=== PATIENT | male | born 1985 | race African-American/Black ===

== ENCOUNTER 2017-01-30 09:41 | Emergency (ER) | payer OTHER ==
[~2017-01-30] VITALS: Wt 70.0 kg
[2017-01-30] MEDS ORDERED: morphine 4 MG/ML VIAL IV STA (10:03)
[2017-01-30] MEDS ORDERED: ONDANSETRON 4 MG INJ IV STA (10:03)
--- NOTE | 2017-01-30 10:25 | ERD ---
ER Documentation Chief Complaint Date/Time DATE: 01/30/17 TIME: 10:21 Chief Complaint LLQ ABD PAIN, VOMITING YESTERDAY HPI Patient is a 31-year-old male with no past medical history who presents to the ED with left-sided abdominal pain 1 week and left testicular pain 1 day he states that he had one episode of nonbloody nonbilious emesis yesterday. Last bowel movement was 3 days ago. Denies chest pain or cough or shortness of breath. Denies headache or dizziness. Has not taken any medication for his symptoms. ROS All systems reviewed and are negative except as per history of present illness. Medications Home Meds Active Scripts Ciprofloxacin Hcl* (Ciprofloxacin Hcl*) 500 Mg Tablet, 500 MG PO BID for 10 Days , TAB Prov:OLINDA WILKERSON PA-C 01/30/17 Acetaminophen* (Tylophen*) 500 Mg Capsule, 1 CAP PO Q6H Y for PAIN AND OR ELEVATED TEMP, #20 CAP Prov:OLINDA WILKERSON PA-C 01/30/17 Ondansetron (Ondansetron Odt) 4 Mg Tab.rapdis, 4 MG PO Q6H Y for NAUSEA AND/OR VOMITING, #10 TAB Prov:OLINDA WILKERSON PA-C 01/30/17 Allergies Allergies: Coded Allergies: No Known Allergy (Unverified , 01/30/17) PMhx/Soc Medical and Surgical Hx: pt denies Surgical Hx History of Surgery: No Anesthesia Reaction: No Hx Neurological Disorder: No Hx Respiratory Disorders: No Hx Cardiac Disorders: No Hx Psychiatric Problems: No Hx Miscellaneous Medical Probl: No (groin pain) Hx Alcohol Use: No Hx Substance Use: Yes Hx Tobacco Use: Yes Smoking Status: Current every day smoker Physical Exam Vitals Vital Signs Date Time Temp Pulse Resp B/P Pulse Ox O2 Delivery O2 Flow Rate FiO2 01/30/17 09:44 97.0 91 17 126/63 100 Physical Exam GENERAL: Well-developed, well-nourished male. Appears in no acute distress. HEAD: Normocephalic, atraumatic. EYES: Pupils are equally reactive bilaterally. EOMs grossly intact. No conjunctival erythema. ENT: Moist mucous membranes. No uvula deviation. No kissing tonsils. No exudates. NECK: Supple. No lymphadenopathy or thyromegaly. No meningismus. negative kernig. negative brudinski. LUNG: Clear to auscultation bilaterally. No rhonchi, wheezing, rales or coarse breath sounds. HEART: Regular rate and rhythm. No murmurs, rubs or gallops. ABDOMEN: No scars, ecchymosis or rashes noted. Soft, left-sided abdominal tenderness. Positive bowel sounds in all four quadrants. No rebound tenderness, no guarding. (-) McBurneys point tenderness. No CVA tenderness. : Left testicle is swollen and erythematous and tender. BACK: No midline tenderness. Extremities: Equal pulses bilaterally. No peripheral clubbing, cyanosis or edema. No unilateral leg swelling. NEUROLOGIC: Alert and oriented. Moving all four extremities. 5/5 strength in all extremities. Normal speech. Steady gait. SKIN: Normal color. Warm and dry. No rashes or lesions. Capillary refill < 2 seconds Result Diagram: 01/30/17 1015 01/30/17 1015 Results 24 hrs Laboratory Tests Test 01/30/17 10:15 01/30/17 12:05 White Blood Count 13.110^3/ul Red Blood Count 4.1710^6/ul Hemoglobin 13.6g/dl Hematocrit 40.8% Mean Corpuscular Volume 97.8fl Mean Corpuscular Hemoglobin 32.6pg Mean Corpuscular Hemoglobin Concent 33.3g/dl Red Cell Distribution Width 13.2% Platelet Count 54314^3/UL Mean Platelet Volume 9.5fl Neutrophils % 77.3% Lymphocytes % 12.6% Monocytes % 9.0% Eosinophils % 0.5% Basophils % 0.2% Nucleated Red Blood Cells % 0.0/100WBC Neutrophils # 10.110^3/ul Lymphocytes # 1.710^3/ul Monocytes # 1.210^3/ul Eosinophils # 0.110^3/ul Basophils # 0.010^3/ul Nucleated Red Blood Cells # 0.010^3/ul Sodium Level 142mmol/L Potassium Level 5.0mmol/L Chloride Level 106mmol/L Carbon Dioxide Level 31mmol/L Anion Gap 10 Blood Urea Nitrogen 9mg/dl Creatinine 0.91mg/dl Glucose Level 131mg/dl Calcium Level 9.4mg/dl Total Bilirubin 0.8mg/dl Direct Bilirubin 0.00mg/dl Indirect Bilirubin 0.8mg/dl Aspartate Amino Transf (AST/SGOT) 27IU/L Alanine Aminotransferase (ALT/SGPT) 31IU/L Alkaline Phosphatase 66IU/L Total Protein 7.7g/dl Albumin 4.5g/dl Globulin 3.20g/dl Albumin/Globulin Ratio 1.40 Lipase 22U/L Urine Color LT. YELLOW Urine Clarity CLOUDY Urine pH 6.5 Urine Specific [place] 1.025 Urine Ketones NEGATIVE Urine Nitrite POSITIVE Urine Bilirubin NEGATIVE Urine Urobilinogen 1.0 E.U./dL Urine Leukocyte Esterase 2+ Urine Microscopic RBC 0-2/HPF Urine Microscopic WBC >200/HPF Urine Bacteria MANY Urine Hemoglobin TRACE Urine Glucose NEGATIVE% Urine Total Protein 1+ Current Medications Medications (Trade) Dose Ordered Sig/Hillary Route PRN Reason Start Time Stop Time Status Last Admin Dose Admin Morphine Sulfate (morphine) 4 mg ONCE STAT IV 01/30/17 10:03 01/30/17 10:05 DC 01/30/17 10:24 Ondansetron HCl (Zofran Inj) 4 mg ONCE STAT IV 01/30/17 10:03 01/30/17 10:05 DC 01/30/17 10:24 Ceftriaxone Sodium (Rocephin) 250 mg ONCE ONCE IM 01/30/17 12:00 01/30/17 12:05 DC 01/30/17 12:03 Azithromycin (Zithromax) 1,000 mg ONCE ONCE PO 01/30/17 13:00 01/30/17 13:01 01/30/17 12:50 Procedures/MDM ER COURSE: I kept the patient and/or family informed of laboratory and diagnostic imaging results throughout the emergency room course. EKG, MONITORS, & DIAGNOSTIC IMAGING: [place] [address] Radiology Main Line: [phone] DIAGNOSTIC IMAGING REPORT Patient: SHILA CHANDLER : 1985 Age: 31 Sex: M MR #: [id number] DOS: 01/30/17 1003 Ordering MD: OLINDA WILKERSON PA-C Location: [facility] Room/Bed: PROCEDURE: CT Abdomen and pelvis without contrast. CLINICAL INDICATION: Abdominal Pain TECHNIQUE: CT scan of the abdomen and pelvis without contrast was performed on a multidetector high-resolution CT scan. . Coronal and sagittal reformatted images were obtained from the axial source images. Standard CT scan of the abdomen pelvis without contrast protocols were performed. The total exam CTDI equals 8.29 mGy and the total exam DLP equals 480.93 mGy- cm. One or more of the following dose reduction techniques were used: - Automated exposure control. - Adjustment of the mA and/or kV according to patient size. Use of iterative reconstruction technique. COMPARISON: None. FINDINGS: There are numerous focal areas of increased density within the gastric lumen consistent with ingested pills. The stomach is otherwise unremarkable. The small bowel, large bowel and appendix are unremarkable. Negative for intra- abdominal free fluid, free air or abscesses. Note that there is a paucity of retroperitoneal fat. There is retroperitoneal lymphadenopathy in the periaortic and inner aortocaval region at the level of the posterior pancreas and kidneys which is difficult optimally measure however the largest lymph node posterior to the pancreatic body is approximately 1.4 cm. Lymphadenopathy may be inflammatory in nature however neoplasm such as lymphoma should be considered. The kidneys are normal in size without renal calcified calculi hydronephrosis or intra renal masses bilaterally. The urinary bladder is unremarkable. The prostate gland is unremarkable. The liver spleen adrenal glands and gallbladder are unremarkable. No definite pancreatic lesion is seen however without intravenous contrast administration it is difficult to optimally evaluate for pancreatic lesions. There is diffuse pancreatic duct dilation with a maximal diameter of 7 mm at the level of the pancreatic head. The common bile duct is prominent for the patient's age with a maximal diameter of approximately 5 mm. No evidence of intrahepatic biliary ductal dilation. There is no definite pancreatic duct or biliary ductal calculi. Recommend high-resolution MRI of the pancreas with contrast for pancreatic mass protocols for further evaluation. The lung bases are clear. No evidence of aortic aneurysm. The osseous structures are unremarkable. IMPRESSION: 1. Paucity of retroperitoneal fat in addition with lack of intravenous contrast administration precludes optimal evaluation of the retroperitoneum and pancreas. 2. There is dilation of the common bile duct and pancreatic duct as described above without a definite pancreatic mass or calculi demonstrated. Recommend follow-up high-resolution MRI of the pancreas with contrast for pancreatic mass protocols for further evaluation. 3. Retroperitoneal lymphadenopathy as described above may be inflammatory or neoplastic etiology such as lymphoma should be considered. 4. No evidence of calcified renal calculi or obstructive uropathy. 5. Negative for intra-abdominal free air or fluid. Addendum: ABIOLA Wilkerson was telephoned this results on 01/30/2017 at 1130 hours. RPTAT:AAJJ Physician Jolene Date Time Electronically viewed and signed by Judah Biswas Physician on 01/30/2017 11:45 BM/ CC: OLINDA WILKERSON PA-C [place] [address] Radiology Main Line: [phone] DIAGNOSTIC IMAGING REPORT Patient: SHILA CHANDLER : 1985 Age: 31 Sex: M MR #: [id number] DOS: 01/30/17 1003 Ordering MD: OLINDA WILKERSON PA-C Location: [facility] Room/Bed: PROCEDURE: Scrotal ultrasound CLINICAL INDICATION: Scrotal pain. TECHNIQUE: Scrotal ultrasound was performed with sagittal and transverse views. Chowdhury scale and color imaging was performed. Images were reviewed on high resolution PACS monitors. COMPARISON: 02/10/2014. FINDINGS: The right testicle measures 3.4 x 2.2 x 2.7 cm. The left testicle measures 3.2 x 2.4 x 2.8 cm. There is normal size and echogenicity and morphology bilaterally. There is normal blood flow to both testes. There is slightly hyperemic flow to the left epididymis.. Left epididymis appears hyperemic. No focal mass or fluid collection is seen. There are bilateral hydroceles, left greater than right. There is a right-sided varicocele noted which increases with Valsalva maneuver. The soft tissues are unremarkable. No mass or cyst or other abnormality is seen. IMPRESSION: 1. Enlarged hyperemic left epididymis consistent with epididymitis. 2. Right-sided varicocele which increases in size with Valsalva maneuver. 3. Bilateral hydroceles, left greater than right. 4. Unremarkable appearance of the testis bilaterally. RPTAT: AACC Physician Farzaneh Date Time Electronically viewed and signed by Physician Farzaneh on 01/30/2017 11: 09 JH/ CC: OLINDA WILKERSON PA-C MEDICATIONS: IV fluids, Zofran, morphine, Rocephin and 1 g azithromycin. Tolerated well with no adverse reaction. LAB INTERPRETATION: CBC showed no evidence of systemic infection or severe anemia. CMP showed no evidence of electrolyte abnormalities, severe acidosis, alkalosis, renal failure , or liver disease. Lipase showed no evidence of acute pancreatitis. UA showed positive leukocytes and positive nitrites with no hematuria. Urine was sent for gonorrhea and chlamydia culture MEDICAL DECISION MAKING: This is a 31-year-old male with no past medical history who presents with abdominal pain, testicular pain 1 week. Vital signs were reviewed. Patient is afebrile. Patient is not hypoxic. Patient is not toxic or ill-appearing. Patient has epididymitis. Patient was treated here in the ED for epididymitis and urine was sent for culture. Patient advised for all sexual partners to be tested and treated as well. Patient also has a UTI. His urine showed positive nitrites and leukocytes. Patient will be treated outpatient with ciprofloxacin for [address] as read by radiologist shows no acute abdominal emergency at this time however patient is to follow-up with a GI specialist for further evaluation of his enlarged pancreatic duct and possible pancreatic mass. I consulted with my supervising physician, dr suresh who reviewed all imaging studies. All imaging reports and studies were explained to patient. Patient will be following up with GI specialist. Low suspicion for ACS, AAA, perforated ulcer, bowel obstruction, cholecystitis, choledocholithiasis, cholangitis, pancreatitis, hepatic abscess, appendicitis, diverticulitis, gastroenteritis, hepatitis, peptic ulcer disease, Low suspicion for pyelonephritis, UTI, nephrolithiasis, appendicitis, testicular torsion, incarcerated or strangulated hernia. DISCHARGE: At this time, patient is stable for discharge and outpatient management with no new complaints during the ER course. Patient was sent home with ciprofloxacin, Tylenol and Zofran and a copy of all imaging report. Patient will be discharged home with instructions to recheck for new or worsening symptoms such as fever, nausea, weakness, LOC and to follow up with primary care in the next 1-2 days. Patient was advised to return to the ER for any new or worsening symptoms. Plan was discussed and patient and/or family understands and agrees. Home instructions were given. Departure Diagnosis: Primary Impression: Epididymitis Additional Impression: UTI (lower urinary tract infection) Condition: Stable OLINDA WILKERSON PA-C Jan 30, 2017 10:25
[2017-01-30 10:34] LABS: ADD SCAN DIFF NO
[2017-01-30 10:48] LABS: BASOPHILS % 0.2 % (0.0-2.0); EOSINOPHILS # 0.1 10^3/ul (0.0-0.5); EOSINOPHILS % 0.5 % (0.0-7.0); HEMATOCRIT 40.8 % (42.0-52.0); HEMOGLOBIN 13.6 g/dl (14.0-18.0); LYMPHOCYTES # 1.7 10^3/ul (0.8-2.9); LYMPHOCYTES % 12.6 % (15.0-51.0); MEAN CORPUSCULAR HEMOGLOBIN 32.6 pg (29.0-33.0); MEAN CORPUSCULAR HGB CONC 33.3 g/dl (32.0-37.0); MEAN CORPUSCULAR VOLUME 97.8 fl (82.0-101.0); MEAN PLATELET VOLUME 9.5 fl (7.4-10.4); MONOCYTE # 1.2 10^3/ul (0.3-0.9); NEUTROPHIL # 10.1 10^3/ul (1.6-7.5); NEUTROPHILS % 77.3 % (39.0-77.0); PLATELET COUNT 264 10^3/UL (140-415); RED BLOOD COUNT 4.17 10^6/ul (4.70-6.10); RED CELL DISTRIBUTION WIDTH 13.2 % (11.5-14.5); WHITE BLOOD COUNT 13.1 10^3/ul (4.8-10.8)
[2017-01-30 11:02] LABS: ALBUMIN 4.5 g/dl (3.3-4.9); ALBUMIN/GLOBULIN RATIO 1.4; BILIRUBIN,INDIRECT 0.8 mg/dl (0-1.1); BILIRUBIN,TOTAL 0.8 mg/dl (0.2-1.3); CALCIUM 9.4 mg/dl (8.4-10.2); CREATININE 0.91 mg/dl (0.61-1.24); TOTAL PROTEIN 7.7 g/dl (6.1-8.1)
--- NOTE | 2017-01-30 11:10 | RADRPT ---
PROCEDURE: Scrotal ultrasound CLINICAL INDICATION: Scrotal pain. TECHNIQUE: Scrotal ultrasound was performed with sagittal and transverse views. Chowdhury scale and co enmanuel imaging was performed. Images were reviewed on high resolution PACS monitors. COMPARISON: 02/10/2014. FINDINGS: The right testicle measures 3.4 x 2.2 x 2.7 cm. The left testicle measures 3.2 x 2.4 x 2.8 cm. There is normal size and echogenicity and morphology bilaterally. There is normal blood flow to both testes. There is slightly hyperemic flow to the left epididymis. . Left epididymis appears hyperemic. No focal mass or fluid collection is seen. There are bilateral hydroceles, left greater than right. There is a right-sided varicocele noted which increases with Valsalva maneuver. The soft tissues are unremarkable. No mass or cyst or other abnormality is seen. IMPRESSION: 1. Enlarged hyperemic left epididymis consistent with epididymitis. 2. Right-sided varicocele which increases in size with Valsalva maneuver. 3. Bilateral hydroceles, left greater than right. 4. Unremarkable appearance of the testis bilaterally. RPTAT: AACC Physician Farzaneh Date Time Electronically viewed and signed by Physician Farzaneh on 01/30/2017 11:09 /
--- NOTE | 2017-01-30 11:45 | RADRPT ---
PROCEDURE: CT Abdomen and pelvis without contrast. CLINICAL INDICATION: Abdominal Pain TECHNIQUE: CT scan of the abdomen and pelvis without contrast was performed on a multidetector hig h-resolution CT scan. . Coronal and sagittal reformatted images were obtained from the axial [facility] e images. Standard CT scan of the abdomen pelvis without contrast protocols were performed. The total exam CTDI equals 8.29 mGy and the total exam DLP equals 480.93 mGy-cm. One or more of the following dose reduction techniques were used: - Automated exposure control. - Adjustment of the mA and/or kV according to patient size. Use of iterative reconstruction technique. COMPARISON: None. FINDINGS: There are numerous focal areas of increased density within the gastric lumen consistent with ingeste d pills. The stomach is otherwise unremarkable. The small bowel, large bowel and appendix are unre markable. Negative for intra-abdominal free fluid, free air or abscesses. Note that there is a [place] of retroperitoneal fat. There is retroperitoneal lymphadenopathy in the periaortic and inner a ortocaval region at the level of the posterior pancreas and kidneys which is difficult optimally edna sure however the largest lymph node posterior to the pancreatic body is approximately 1.4 cm. Lymph adenopathy may be inflammatory in nature however neoplasm such as lymphoma should be considered. The kidneys are normal in size without renal calcified calculi hydronephrosis or intra renal masses bilaterally. The urinary bladder is unremarkable. The prostate gland is unremarkable. The liver spleen adrenal glands and gallbladder are unremarkable. No definite pancreatic lesion is seen however without intravenous contrast administration it is diff icult to optimally evaluate for pancreatic lesions. There is diffuse pancreatic duct dilation with a maximal diameter of 7 mm at the level of the pancreatic head. The common bile duct is prominent fo r the patient's age with a maximal diameter of approximately 5 mm. No evidence of intrahepatic bili king ductal dilation. There is no definite pancreatic duct or biliary ductal calculi. Recommend high -resolution MRI of the pancreas with contrast for pancreatic mass protocols for further evaluation. The lung bases are clear. No evidence of aortic aneurysm. The osseous structures are unremarkable. IMPRESSION: 1. Paucity of retroperitoneal fat in addition with lack of intravenous contrast administration prec ludes optimal evaluation of the retroperitoneum and pancreas. 2. There is dilation of the common bile duct and pancreatic duct as described above without a defin ite pancreatic mass or calculi demonstrated. Recommend follow-up high-resolution MRI of the pancrea s with contrast for pancreatic mass protocols for further evaluation. 3. Retroperitoneal lymphadenopathy as described above may be inflammatory or neoplastic etiology rod[place] as lymphoma should be considered. 4. No evidence of calcified renal calculi or obstructive uropathy. 5. Negative for intra-abdominal free air or fluid. Addendum: ABIOLA Wilkerson was telephoned this results on 01/30/2017 at 1130 hours. RPTAT:AAJJ Physician Jolene Date Time Electronically viewed and signed by Physician Jolene on 01/30/2017 11:45 BM/
[2017-01-30] MEDS ORDERED: DOXY100T20 PO (11:58)
[2017-01-30] MEDS ORDERED: ACET500C5 PO (11:58)
[2017-01-30] MEDS ORDERED: ONDA4TAB14 PO (11:58)
[2017-01-30] MEDS ORDERED: CEFTRIAXONE 250 MG INJ IM ONE (12:00)
[2017-01-30 12:10] LABS: ADD UMIC YES; URINE BILIRUBIN (Dip) NEGATIVE (NEGATIVE); URINE BLOOD (Dip) TRACE (NEGATIVE); URINE COLOR LT. YELLOW (YELLOW); URINE GLUCOSE (Dip) NEGATIVE (NEGATIVE); URINE KETONES (Dip) NEGATIVE (NEGATIVE); URINE LEUKOCYTE ESTERASE (Dip) 2+ (NEGATIVE); URINE NITRITE (Dip) POSITIVE (NEGATIVE); URINE TOTAL PROTEIN (Dip) 1+ (NEGATIVE); URINE UROBILINOGEN (Dip) 1.0 E.U./dL (0.1-1.0)
[2017-01-30 12:24] LABS: BACTERIA,URINE MANY; URINE RBCS 0-2 /HPF (0)
[2017-01-30] MEDS ORDERED: CIPR500T4 PO (12:44)
[2017-01-30] MEDS ORDERED: AZITHROMYCIN 250 MG TAB PO ONE (13:00)
[2017-01-30 13:25] VITALS: BP 124/62; PULSE 86; RESP 17; TEMP 97.8
== END 2017-01-30 13:25 | disposition home or self-care (01) ==
LOC: FTE 09:41
DX: N45.1 Epididymitis (principal); N39.0 Urinary tract infection, site not specified; F17.210 Nicotine dependence, cigarettes, uncomplicated; R11.10 Vomiting, unspecified
CPT/HCPCS: 74176; 76870; 80053; 81001; 83690; 85025; 87086; 87591; J0696; J2270; J2405; Z7610; 36415; 96372; 96374; 96375